=== PATIENT | male | born 1970 | race American Indian/Alaskan Native ===

== ENCOUNTER 2017-09-19 12:09 | Emergency (ER) | payer OTHER ==
--- NOTE | 2017-09-19 12:42 | Emergency Department Report ---
HPI - General Chief Complaint: Chest Pain Time Seen by Provider: 09/19/17 12:20 - HPI HPI: Room 2 The patient is a 47-year-old male presenting with chief complaint of syncope. The patient states he was at work indoors and while standing began feeling dizzy and flushed. The patient states the next thing he knows is that he was being carried to the break room. Patient denies chest pain headache or shortness of breath. Patient denies nausea/vomiting. Patient currently denies any complaints stating "I'm good now." Location: [See above] Duration: [See above] Quality: Syncope Severity: Moderate Modifying factors: [see above] Context: [see above] Mode of transportation: [not driving] ED Past Medical Hx - Past Medical History Previous Medical History?: Yes Additional medical history: heart murmur - Surgical History Past Surgical History?: No - Family History Family history: no significant - Social History Smoking Status: Never Smoker Substance Use Type: None (denies illicit drug use), Alcohol (sixpack of beer daily. Last consumed yesterday) - Medications Home Medications: Home Medications Medication Instructions Recorded Confirmed Last Taken Type No Known Home Medications [No 08/13/13 09/19/17 Unknown History Reported Home Medications] ED Review of Systems ROS: Stated complaint: SYNCOPY Other details as noted in HPI Constitutional: denies: diaphoresis Eyes: denies: eye pain ENT: denies: throat pain Respiratory: denies: shortness of breath Cardiovascular: denies: chest pain Endocrine: no symptoms reported Gastrointestinal: denies: abdominal pain, nausea, vomiting Genitourinary: denies: dysuria Musculoskeletal: denies: back pain Neurological: denies: headache Physical Exam - Physical Exam Vital Signs: Vital Signs 09/19/17 09/19/17 09/19/17 12:10 12:12 12:21 Temperature 98.2 F 98.2 F Pulse Rate 90 Respiratory 20 17 Rate Blood Pressure 134/87 O2 Sat by Pulse 97 100 Oximetry Physical Exam: GENERAL: The patient is well-developed well-nourished male sitting on stretcher not appear to be in acute distress. [] HEENT: Normocephalic. Atraumatic. Extraocular motions are intact. Patient has moist mucous membranes. No nystagmus NECK: Supple. Trachea midline CHEST/LUNGS: Clear to auscultation. There is no respiratory distress noted. HEART/CARDIOVASCULAR: Regular. There is no tachycardia. There is no gallop rub or murmur. ABDOMEN: Abdomen is soft, nontender. Patient has normal bowel sounds. There is no abdominal distention. SKIN: There is no rash. There is no edema. There is no diaphoresis. NEURO: The patient is awake, alert, and oriented. The patient is cooperative. The patient has no focal neurologic deficits. The patient has normal speech. Cranial nerves II through XII grossly intact, no drift MUSCULOSKELETAL: There is no evidence of acute injury. ED Course Vital Signs 09/19/17 09/19/17 09/19/17 12:10 12:12 12:21 Temperature 98.2 F 98.2 F Pulse Rate 90 Respiratory 20 17 Rate Blood Pressure 134/87 O2 Sat by Pulse 97 100 Oximetry ED Medical Decision Making - Lab Data Result diagrams: 09/19/17 12:19 09/19/17 12:19 Laboratory Tests 09/19/17 09/19/17 09/19/17 12:19 12:19 12:40 WBC 3.9 L RBC 5.11 H Hgb 13.7 Hct 40.6 MCV 79 L MCH 27 L MCHC 34 RDW 14.7 Plt Count 307 Lymph % (Auto) 29.6 [place] % (Auto) 5.9 Eos % (Auto) 0.4 Baso % (Auto) 1.5 Lymph # 1.2 [place] # 0.2 Eos # 0.0 Baso # 0.1 Seg Neutrophils % 62.6 Seg Neutrophils # 2.5 D-Dimer < 135.00 Sodium 138 Potassium 4.4 Chloride 97.0 L Carbon Dioxide 22 Anion Gap 23 BUN 14 Creatinine 1.2 Estimated GFR > 60 BUN/Creatinine Ratio 12 Glucose 122 H Calcium 8.7 Total Creatine Kinase CK-MB (CK-2) CK-MB (CK-2) Rel Index Troponin T < 0.010 TSH Free T4 Plasma/Serum Alcohol 09/19/17 09/19/17 09/19/17 12:40 12:40 12:40 WBC RBC Hgb Hct MCV MCH MCHC RDW Plt Count Lymph % (Auto) [place] % (Auto) Eos % (Auto) Baso % (Auto) Lymph # [place] # Eos # Baso # Seg Neutrophils % Seg Neutrophils # D-Dimer Sodium Potassium Chloride Carbon Dioxide Anion Gap BUN Creatinine Estimated GFR BUN/Creatinine Ratio Glucose Calcium Total Creatine Kinase 129 CK-MB (CK-2) 2.1 CK-MB (CK-2) Rel Index 1.6 Troponin T TSH 2.550 Free T4 0.84 Plasma/Serum Alcohol 0.14 H Laboratory Tests 09/19/17 09/19/17 09/19/17 12:19 12:19 12:40 WBC 3.9 L RBC 5.11 H Hgb 13.7 Hct 40.6 MCV 79 L MCH 27 L MCHC 34 RDW 14.7 Plt Count 307 Lymph % (Auto) 29.6 [place] % (Auto) 5.9 Eos % (Auto) 0.4 Baso % (Auto) 1.5 Lymph # 1.2 [place] # 0.2 Eos # 0.0 Baso # 0.1 Seg Neutrophils % 62.6 Seg Neutrophils # 2.5 D-Dimer < 135.00 Sodium 138 Potassium 4.4 Chloride 97.0 L Carbon Dioxide 22 Anion Gap 23 BUN 14 Creatinine 1.2 Estimated GFR > 60 BUN/Creatinine Ratio 12 Glucose 122 H Calcium 8.7 Total Creatine Kinase CK-MB (CK-2) CK-MB (CK-2) Rel Index Troponin T < 0.010 TSH Free T4 Plasma/Serum Alcohol 09/19/17 09/19/17 09/19/17 12:40 12:40 12:40 WBC RBC Hgb Hct MCV MCH MCHC RDW Plt Count Lymph % (Auto) [place] % (Auto) Eos % (Auto) Baso % (Auto) Lymph # [place] # Eos # Baso # Seg Neutrophils % Seg Neutrophils # D-Dimer Sodium Potassium Chloride Carbon Dioxide Anion Gap BUN Creatinine Estimated GFR BUN/Creatinine Ratio Glucose Calcium Total Creatine Kinase 129 CK-MB (CK-2) 2.1 CK-MB (CK-2) Rel Index 1.6 Troponin T TSH 2.550 Free T4 0.84 Plasma/Serum Alcohol 0.14 H 09/19/17 16:09 WBC RBC Hgb Hct MCV MCH MCHC RDW Plt Count Lymph % (Auto) [place] % (Auto) Eos % (Auto) Baso % (Auto) Lymph # [place] # Eos # Baso # Seg Neutrophils % Seg Neutrophils # D-Dimer Sodium Potassium Chloride Carbon Dioxide Anion Gap BUN Creatinine Estimated GFR BUN/Creatinine Ratio Glucose Calcium Total Creatine Kinase CK-MB (CK-2) CK-MB (CK-2) Rel Index Troponin T TSH Free T4 Plasma/Serum Alcohol 0.05 - Differential Diagnosis syncope, PE, dysrhythmia, symptomatic anemia Critical care attestation.: If time is entered above; I have spent that time in minutes in the direct care of this critically ill patient, excluding procedure time. ED Disposition Clinical Impression: Syncope, Alcohol intoxication Disposition: DC-07 LEFT AGAINST MED ADVICE Is pt being admited?: No Does the pt Need Aspirin: No Condition: Undetermined Instructions: Syncope (ED) Referrals: PRIMARY CARE, [Primary Care Provider] - 3-5 Days Time of Disposition: 17:45 (patient leaving AMA (EtOH less than 0.05))
[2017-09-19 12:47] LABS: BUN/Creatinine Ratio 12; Blood Urea Nitrogen 14 mg/dL (9-20); Calcium 8.7 mg/dL (8.4-10.2); Hemolysis Index 5
[2017-09-19 12:48] LABS: Basophils # (Auto) 0.1 K/mm3 (0.0-0.1); Basophils % (Auto) 1.5 % (0.0-1.8); Eosinophils % (Auto) 0.4 % (0.0-4.3); Hematocrit 40.6 % (35.5-45.6); Hemoglobin 13.7 gm/dl (11.8-15.2); Lymphocytes # (Auto) 1.2 K/mm3 (1.2-5.4); Lymphocytes % (Auto) 29.6 % (13.4-35.0); Mean Corpuscular HGB Conc 34 % (32-34); Mean Corpuscular Hemoglobin 27 pg (28-32); Mean Corpuscular Volume 79 fl (84-94); Monocytes # (Auto) 0.2 K/mm3 (0.0-0.8); Monocytes % (Auto) 5.9 % (0.0-7.3); Platelet Count 307 K/mm3 (140-440); Red Blood Count 5.11 M/mm3 (3.65-5.03); Red Cell Distribution Width 14.7 % (13.2-15.2)
--- NOTE | 2017-09-19 13:06 | Cat Scan Report ---
CT HEAD WITHOUT CONTRAST: HISTORY: Syncope. TECHNIQUE: Sequential 2.5mm CT images. COMPARISON: none. FINDINGS: Cerebral Parenchyma: Within normal limits. Cerebellum: Within normal limits. Brainstem: Within normal limits. Ventricles: Normal. Sella: Normal. Extra-axial spaces: Normal. Basal Cisterns: Normal. Intracranial Hemorrhage: None. Midline Shift: None. Calvarium: Normal. Sinuses: Normal. Mastoid Air Cells: Normal. Visualized Orbits: Normal. IMPRESSION: Cranial CT scan within normal limits.
[2017-09-19 13:17] LABS: Creatine Kinase MB 2.1 ng/mL (0.0-4.0)
[2017-09-19 13:23] LABS: Free T4 (Free Thyroxine) 0.84 ng/dL (0.76-1.46)
[2017-09-19] MEDS ORDERED: NACL 0.9% 1000 ML 1,000 ML IV ONE (14:35)
[2017-09-19 17:23] VITALS: BP 134/81
== END 2017-09-19 17:42 | disposition left against medical advice (07) ==
LOC: ED 12:09
DX: R55 Syncope and collapse (principal); F10.129 Alcohol abuse with intoxication, unspecified
CPT/HCPCS: 36415; 70450; 80048; 82550; 82553; 84439; 84443; 84484; 85025; 85379; 93005; 93010; 96360; 99285; G0480; J7030; 80320